=== PATIENT | male | born 1975 | race Caucasian/White ===

== ENCOUNTER 2019-05-23 16:29 | Emergency (ER) | payer OTHER ==
[~2019-05-23] VITALS: Ht 193 cm; Wt 122.5 kg
[2019-05-23] MEDS ORDERED: OLANZAPINE20 MG (16:49)
[2019-05-23] MEDS ORDERED: BACLOFEN20 MG (16:49)
[2019-05-23] MEDS ORDERED: VIIBRYD20 MG (16:49)
[2019-05-23] MEDS ORDERED: BYSTOLIC20 MG (16:50)
[2019-05-23] MEDS ORDERED: EFFER-K 10 MEQ10 MEQ (16:50)
[2019-05-23] MEDS ORDERED: MINIPRESS5 MG (16:50)
[2019-05-23] MEDS ORDERED: VALACYCLOVIR500 MG (16:51)
[2019-05-23] MEDS ORDERED: AMITRIPTYLINE150 MG (16:51)
== END 2019-05-23 22:07 | disposition home or self-care (01) ==
LOC: ER 16:29
DX: F31.89 Other bipolar disorder (principal); F43.11 Post-traumatic stress disorder, acute